=== PATIENT | female | born 1995 | race African-American/Black ===

== ENCOUNTER 2017-01-25 18:27 | Emergency (ER) | payer OTHER ==
[~2017-01-25] VITALS: Ht 152.4 cm; Wt 69.9 kg
[2017-01-25 19:10] VITALS: BP 132/79
[2017-01-25] MEDS ORDERED: TRIAMCINOLONE ACETONIDE 0.1% TOPICAL CREAM 15GM TUBE. TP STA (19:25)
[2017-01-25] MEDS ORDERED: NAPROXEN 500 MG TABLET PO STA (19:25)
[2017-01-25] MEDS ORDERED: predniSONE 20 MG TABLET PO ONE (19:30)
[2017-01-25] MEDS ORDERED: NAPR500T8 PO (19:54)
[2017-01-25] MEDS ORDERED: PRED50TA PO (19:54)
--- NOTE | 2017-01-25 19:55 | PHYS DOC ---
Past Medical History Past Medical History: Asthma Additional Past Medical Histor: ECZEMA Past Surgical History: Alcohol Use: None Drug Use: None Adult General Chief Complaint Chief Complaint: HAND PROBLEM HPI HPI Patient is a 21 year old female who presents with right hand pain and swelling that began one week ago. Patient denies any known injury. Patient does have history of eczema on her bilateral hands. Review of Systems Review of Systems Constitutional: Denies fever or chills [] Eyes: Denies change in visual acuity, redness, or eye pain [] HENT: Denies nasal congestion or sore throat [] Musculoskeletal: Right hand pain and swelling Integument: Denies rash or skin lesions [] Neurologic: Denies headache, focal weakness or sensory changes [] Endocrine: Denies polyuria or polydipsia [] Current Medications Current Medications Current Medications Medications (Trade) Dose Ordered Sig/Javier Start Time Stop Time Status Last Admin Dose Admin Naproxen (Naprosyn) 500 mg 1X STAT 01/25/17 19:25 01/25/17 19:30 DC 01/25/17 19:43 500 MG Prednisone (Prednisone) 60 mg 1X ONCE 01/25/17 19:30 01/25/17 19:31 DC 01/25/17 19:43 60 MG Triamcinolone Acetonide (Kenalog) 1 quinton 1X STAT 01/25/17 19:25 01/25/17 19:30 DC 01/25/17 19:44 1 QUINTON Allergies Allergies Allergies Coded Allergies Type Severity Reaction Last Updated Verified No Known Drug Allergies 09/03/14 No Physical Exam Physical Exam Constitutional: Well developed, well nourished, no acute distress, non-toxic appearance. [] HENT: Normocephalic, atraumatic, bilateral external ears normal, oropharynx moist, no oral exudates, nose normal. [] Eyes: PERRLA, EOMI, conjunctiva normal, no discharge. [] Skin: see extremity documentation Back: No tenderness, no CVA tenderness. [] Extremities: Right hand with no obvious deformity. Mild eczema noted on the right hand especially in between the fingers, with swelling and no drainage. Tenderness diffusely throughout the hand. Full range of motion to the right hand and fingers. +2 right radial pulse. Cap refill less than 2 seconds the right hand. Adequate radial medial and ulnar sensation to the right fingers. Neurologic: Alert and oriented X 3, normal motor function, normal sensory function, no focal deficits noted. [] Psychologic: Affect normal, judgement normal, mood normal. [] Current Patient Data Vital Signs Vital Signs Date Time Temp Pulse Resp B/P (MAP) Pulse Ox O2 Delivery O2 Flow Rate FiO2 01/25/17 19:10 98.4 94 16 98 Room Air 98.4 EKG EKG [] Radiology/Procedures Radiology/Procedures [] Course & Med Decision Making Course & Med Decision Making Pertinent Labs and Imaging studies reviewed. (See chart for details) This is a 21-year-old female patient in the ED with right hand pain and swelling that began one week ago. She is noted for mild eczema on her right hand especially the swollen areas which is between her fingers. She also could have arthritis in the hand. She was given prednisone in the ED and discharged with the same, given prescription for Cream, Given Prescription for Naproxen. Encouraged to Ice and Elevate the Extremity. Encouraged to Follow up with the Primary Care Doctor in 1-2 Weeks. Dragon Disclaimer Dragon Disclaimer This electronic medical record was generated, in whole or in part, using a voice recognition dictation system. Departure Departure Impression: Primary Impression: Eczema of right hand Additional Impression: Swelling of right hand Disposition: 01 HOME, SELF-CARE Condition: STABLE Referrals: NO PCP (PCP) STEVEN CARNES MD follow up in one to two weeks Patient Instructions: Eczema, Edema, [id number] Additional Instructions: You were seen for right hand pain and swelling. You were noted for eczema on your right hand. Use the provided cream twice a day. Take the prescribed redness on as ordered as well as naproxen. Follow-up with a primary care doctor or a doctor from the list provided in 1-2 weeks. Ice and elevate the extremity. Scripts Prednisone (PREDNISONE) 50 Mg Tablet 1 TAB PO DAILY, #5 TAB Prov: YANCI SULLIVAN APRN 01/25/17 Naproxen (NAPROXEN) 500 Mg Tablet. 1 TAB PO BID, #60 TAB 1 Refill Prov: YANCI SULLIVAN APRN 01/25/17 Problem Qualifiers YANCI SULLIVAN APRN Jan 25, 2017 19:55
== END 2017-01-25 19:57 | disposition home or self-care (01) ==
LOC: ER 18:27
DX: L30.9 Dermatitis, unspecified (principal); M79.89 Other specified soft tissue disorders
CPT/HCPCS: 99284; J7512